=== PATIENT | male | born 1985 | race Asian ===

== ENCOUNTER 2022-11-13 21:04 | Emergency (ER) | payer OTHER ==
[~2022-11-13] VITALS: Ht 188 cm; Wt 127.5 kg
[2022-11-13 21:50] VITALS: BP 156/96; TEMP 97.3
== END 2022-11-13 21:50 | disposition home or self-care (01) ==
LOC: ED 21:04
DX: H66.92 Otitis media, unspecified, left ear (principal); K64.9 Unspecified hemorrhoids
CPT/HCPCS: 99282